=== PATIENT | male | born 1945 | race Caucasian/White ===

== ENCOUNTER 2016-12-20 11:34 | Day surgery (SDC) | payer OTHER ==
[~2016-12-20] VITALS: Ht 170.2 cm; Wt 101.3 kg
[~2016-12-20 11:34] MED LIST: ADVAIR 250/501 DISK IH; ALPRAZOLAM0.25 M2 PO; ANTARA130 MG PO; CRESTOR40 MG PO; HYDROCHLOROTHIA25 MG PO; LO-DOSE ASPIRIN81 M2 PO; LOFIBRA134 MG PO; LOTREL 10/41 CAPSULE PO; MIRALAX17 GM PO; NEURONTIN100 MG PO; NITROSTAT0.4 MG SL; NORVASC10 MG PO; OMEPRAZOLE10 M1 PO; OSTEO BI-FLEX1 EAC3 PO; PLAVIX75 MG PO; PRILOSEC20 MG PO; SPIRIVA1 INHALATI IH; SYMBICORT60 INHALAT IH; TEKTURNA300 MG PO; TOPROL XL50 MG PO; TOPROL XL6.25 MG PO; TRAMADOL HCL50 MG PO; TYLENOL EXTRA500 MG PO; VENTOLIN HFA18 GM IH; ZANTAC150 MG PO
[2016-12-20 12:08] VITALS: BP 144/81
[2016-12-20 18:44] VITALS: BP 140/92
[2016-12-20 18:55] VITALS: BP 150/76
[2016-12-22 18:01] LABS: CHOLINESTERASE 5179 IU/L (3342-7586)
== END 2016-12-20 19:19 | disposition home or self-care (01) ==
LOC: SDC 11:34
PROVIDERS: Neurological Surgery
PROC: 00NY3ZZ Release Lumbar Spinal Cord, Percutaneous Approach (ICD-10-PCS; principal; 2016-12-20)
DX: M48.06 Spinal stenosis, lumbar region (principal); M47.816 Spondylosis without myelopathy or radiculopathy, lumbar region; G96.8 Other specified disorders of central nervous system; M46.96 Unspecified inflammatory spondylopathy, lumbar region; M54.5 Low back pain; G89.29 Other chronic pain; M19.90 Unspecified osteoarthritis, unspecified site; J44.9 Chronic obstructive pulmonary disease, unspecified; F41.9 Anxiety disorder, unspecified; I10 Essential (primary) hypertension; E78.5 Hyperlipidemia, unspecified; K21.9 Gastro-esophageal reflux disease without esophagitis; I25.10 Atherosclerotic heart disease of native coronary artery without angina pectoris; Z86.73 Personal history of transient ischemic attack (TIA), and cerebral infarction without residual deficits; Z85.46 Personal history of malignant neoplasm of prostate; Z82.49 Family history of ischemic heart disease and other diseases of the circulatory system; Z83.49 Family history of other endocrine, nutritional and metabolic diseases; Z82.61 Family history of arthritis
CPT/HCPCS: 72020; 76000; 82480 90; J0690; J1100; J2405; J2930; J3010; S0020